=== PATIENT | female | born 1970 | race Caucasian/White ===

== ENCOUNTER 2023-07-15 16:35 | Outpatient (OUT) | payer OTHER, SELFPAY ==
[2023-07-17 04:07] LABS: Estradiol 89.1 pg/mL (.); FSH 1.2 mIU/mL (.); Testosterone 264 ng/dL (4-50)
== END 2023-07-15 16:36 | disposition home or self-care (01) ==
LOC: LAB 16:36
PROVIDERS: PCP Family Medicine
DX: N95.1 Menopausal and female climacteric states (principal); Z79.890 Hormone replacement therapy
CPT/HCPCS: 36415; 82670; 83001; 84403